=== PATIENT | male | born 1980 | race Two or more races ===

== ENCOUNTER 2018-07-15 23:38 | Emergency (ER) | payer MEDICAID, OTHER ==
[~2018-07-15] VITALS: Ht 170.2 cm; Wt 75.5 kg
[~2018-07-15 23:38] MED LIST: CALA237L TOP; IBUP-1986 PO; LORA-269 PO; NAPR-1154 PO; PERM60CR19 TP
[2018-07-15 23:46] VITALS: BP 181/96
== END 2018-07-16 00:09 | disposition home or self-care (01) ==
LOC: ER 23:38
DX: S90.32XA Contusion of left foot, initial encounter (principal); Z98.890 Other specified postprocedural states; W22.03XA Walked into furniture, initial encounter; Y93.89 Activity, other specified; Y92.099 Unspecified place in other non-institutional residence as the place of occurrence of the external cause; Y99.9 Unspecified external cause status
CPT/HCPCS: 73630; 99284

== ENCOUNTER 2018-09-23 10:28 | Emergency (ER) | payer MEDICAID, OTHER ==
[~2018-09-23] VITALS: Ht 170.2 cm; Wt 77.3 kg
[2018-09-23 10:42] VITALS: BP 143/83
[2018-09-23] MEDS ORDERED: KETO10TA2 PO (11:13)
== END 2018-09-23 12:45 | disposition home or self-care (01) ==
LOC: ER 10:28
DX: S93.602A Unspecified sprain of left foot, initial encounter (principal); Z79.899 Other long term (current) drug therapy; Z98.890 Other specified postprocedural states; W11.XXXA Fall on and from ladder, initial encounter; Y93.89 Activity, other specified; Y92.89 Other specified places as the place of occurrence of the external cause; Y99.8 Other external cause status
CPT/HCPCS: 73630; 99283

== ENCOUNTER 2018-09-26 13:33 | Outpatient (CLI) | payer OTHER ==
[~2018-09-26 13:33] MED LIST changes: +KETO10TA2 PO
== END 2018-09-26 23:59 | disposition home or self-care (01) ==
LOC: RAD 13:33
PROVIDERS: ATTEND Family Medicine
DX: M19.072 Primary osteoarthritis, left ankle and foot (principal); F17.200 Nicotine dependence, unspecified, uncomplicated
CPT/HCPCS: 73718; 73721

== ENCOUNTER 2020-09-24 13:24 | Emergency (ER) | payer MEDICAID ==
[~2020-09-24] VITALS: Ht 167.6 cm; Wt 81.8 kg
[~2020-09-24 13:24] MED LIST changes: +METH4TAB3 PO; +ONDA4TAB6 PO
[2020-09-24 13:29] VITALS: BP 152/88
[2020-09-24] MEDS ORDERED: acetaminophen 325mg tablet PO ONE (14:40)
== END 2020-09-24 14:54 | disposition home or self-care (01) ==
LOC: ER 13:24
DX: S56.812A Strain of other muscles, fascia and tendons at forearm level, left arm, initial encounter (principal); Z72.89 Other problems related to lifestyle; Z79.899 Other long term (current) drug therapy; X50.0XXA Overexertion from strenuous movement or load, initial encounter; Y93.89 Activity, other specified; Y92.89 Other specified places as the place of occurrence of the external cause; Y99.8 Other external cause status
CPT/HCPCS: 29125; 73090; 99283

== ENCOUNTER 2020-10-11 10:55 | Emergency (ER) | payer MEDICAID ==
[~2020-10-11] VITALS: Ht 167.6 cm; Wt 86.4 kg
[2020-10-11 10:59] VITALS: BP 155/96
[2020-10-11] MEDS ORDERED: ondansetron 4mg rapidly disintigrating tab PO ONE (12:00)
[2020-10-11] MEDS ORDERED: sulfamethoxazole/trimethoprim DS (800/160mg) tablet PO ONE (12:00)
[2020-10-11] MEDS ORDERED: acetaminophen 325mg tablet PO ONE (12:00)
[2020-10-11] MEDS ORDERED: ibuprofen 200mg tablet PO ONE (12:00)
[2020-10-11] MEDS ORDERED: SULF1TAB49 PO (12:02)
== END 2020-10-11 12:37 | disposition home or self-care (01) ==
LOC: ER 10:56
DX: L02.01 Cutaneous abscess of face (principal); Z98.890 Other specified postprocedural states; Z72.89 Other problems related to lifestyle; Z79.899 Other long term (current) drug therapy
CPT/HCPCS: 10060; 99284

== ENCOUNTER 2021-03-22 09:14 | Emergency (ER) | payer MEDICAID, OTHER ==
[~2021-03-22] VITALS: Ht 167.6 cm; Wt 86.4 kg
[2021-03-22 09:53] VITALS: BP 154/101
[2021-03-22] MEDS ORDERED: TETanus/Pertussis (Acell)/Diphther VAC/PF (Tdap-Adult) 0.5ml syringe IMVAC ONE (10:05)
== END 2021-03-22 10:52 ==
LOC: ER 09:14
DX: S61.211A Laceration without foreign body of left index finger without damage to nail, initial encounter (principal); F17.200 Nicotine dependence, unspecified, uncomplicated; F12.90 Cannabis use, unspecified, uncomplicated; Z20.3 Contact with and (suspected) exposure to rabies; Z72.89 Other problems related to lifestyle; Z98.890 Other specified postprocedural states; Z79.899 Other long term (current) drug therapy; W26.8XXA Contact with other sharp object(s), not elsewhere classified, initial encounter; Y93.89 Activity, other specified; Y92.89 Other specified places as the place of occurrence of the external cause; Y99.8 Other external cause status
CPT/HCPCS: 12001; 90471; 90715; 99283

== ENCOUNTER 2022-06-10 08:31 | Emergency (ER) | payer MEDICAID, OTHER ==
[~2022-06-10] VITALS: Ht 167.6 cm; Wt 81.8 kg
[2022-06-10] MEDS ORDERED: piperacillin/tazo 3.375gm/50ml 50 ML IV ONE (09:20)
[2022-06-10 10:24] LABS: BASOPHILS # (AUTO) 0.1 X10'3 (0-0.2); BASOPHILS % (AUTO) 0.8 % (0-1); EOSINOPHILS # (AUTO) 0.1 X10'3 (0-0.9); EOSINOPHILS % (AUTO) 0.3 % (0-6); HEMATOCRIT 39.4 % (42.0-52.0); HEMOGLOBIN 13.2 g/dl (14.0-17.9); LYMPHOCYTES # (AUTO) 0.6 X10'3 (1.1-4.8); LYMPHOCYTES % (AUTO) 3.4 % (21-51); MEAN CORPUSCULAR HGB CONC 33.4 g/dL (33.0-36.5); MEAN CORPUSCULAR VOLUME 89.8 FL (78-98); MEAN PLATELET VOLUME 8.4 FL (7.4-10.4); MONOCYTES # (AUTO) 1.6 X10'3 (0-0.9); MONOCYTES % (AUTO) 9.3 % (2-12); NEUTROPHILS # (AUTO) 14.8 X10'3 (1.8-7.7); NEUTROPHILS % (AUTO) 86.2 % (42-75); PLATELET COUNT 251 X10'3 (140-440); RED BLOOD COUNT 4.39 X10'6 (4.70-6.10); RED CELL DISTRIBUTION WIDTH 13.9 % (11.5-14.5); WHITE BLOOD COUNT 17.2 X10'3 (4.5-11.0)
[2022-06-10 10:49] LABS: ALANINE AMINOTRANSFERASE 52 U/L (12-78); ALBUMIN 3.1 G/DL (3.4-5.0); ALBUMIN/GLOBULIN RATIO 0.7 (1.1-1.5); ALKALINE PHOSPHATASE 83 IU/L (46-116); ANION GAP 9 (8-16); ASPARTATE AMINO TRANSFERASE 33 U/L (10-37); BILIRUBIN,TOTAL 0.7 MG/DL (0.1-1.0); BLOOD UREA NITROGEN 12 MG/DL (7-18); BUN/CREATININE RATIO 13.6 (5.4-32.0); CALCIUM 8.5 MG/DL (8.5-10.1); CHLORIDE 102 MMOL/L (99-107); CREATININE 0.88 MG/DL (0.60-1.10); GLUCOSE 120 MG/DL (70-104); POTASSIUM 3.9 MMOL/L (3.5-5.1); SODIUM 137 MMOL/L (135-145); TOTAL CARBON DIOXIDE 25.9 MMOL/L (24-32); TOTAL PROTEIN 7.4 G/DL (6.4-8.2); eGFR > 90 ML/MIN
[2022-06-10 12:10] LABS: CLARITY,URINE CLEAR (Clear); COLOR,URINE DARK YELLOW (Yellow); GLUCOSE, URINE NEGATIVE (Neg); KETONES,URINE TRACE mg/dl (Neg); LEUKOCYTE ESTERASE ,URINE NEGATIVE (Neg); NITRITES, URINE NEGATIVE (Neg); OCCULT BLOOD,URINE NEGATIVE (Neg); PROTEIN,URINE 30 mg/dl (Neg); UA COLLECTION TYPE VOIDED
[2022-06-10 12:18] LABS: BACTERIA,URINE NONE SEEN /HPF (Neg); FINE GRANULAR CAST 0-3 /LPF (NEGATIVE); HYALINE CASTS 0-3 /LPF (NEGATIVE); MUCUS STRANDS FEW /LPF (Neg); RBC,URINE NONE SEEN /HPF (0-2); SQUAMOUS EPITHELIAL CELL,UR NONE SEEN /LPF (FEW); WBC,URINE 0-4 /HPF (0-4)
[2022-06-10 13:10] VITALS: BP 132/82
[2022-06-10] MEDS ORDERED: HYDROcodone/acetaminophen 10/325mg tab PO ONE (13:10)
[2022-06-10] MEDS ORDERED: rifampin 300mg capsule PO SCH (13:22)
[2022-06-10] MEDS ORDERED: CLIN-97 PO ×2 (13:54)
[2022-06-10] MEDS ORDERED: HYDR-3965 PO ×2 (13:54)
[2022-06-10] MEDS ORDERED: RIFA300C9 PO ×2 (13:54)
[2022-06-11] MEDS ORDERED: NO HOME MEDS (18:15)
== END 2022-06-10 14:11 | disposition home or self-care (01) ==
LOC: ER 08:31
DX: L03.314 Cellulitis of groin (principal); F12.10 Cannabis abuse, uncomplicated; F15.10 Other stimulant abuse, uncomplicated
CPT/HCPCS: 36415; 76870; 80053; 81001; 83605; 83735; 84145; 85025; 87040; 93976; 96365; 99285; J2543

== ENCOUNTER 2022-08-23 15:06 | Emergency (ER) | payer MEDICAID ==
[~2022-08-23] VITALS: Ht 167.6 cm; Wt 77.3 kg
[~2022-08-23 15:06] MED LIST changes: -CALA237L TOP; +DIPH59SP5 TOP; +FOLI1TAB27 PO; -IBUP-1986 PO; -KETO10TA2 PO; -LORA-269 PO; -METH4TAB3 PO; +MULT-25 PO; -NAPR-1154 PO; +NICO-631 TD; -ONDA4TAB6 PO; -PERM60CR19 TP; +thiamine tablet PO
[2022-08-23 15:28] VITALS: BP 134/94
[2022-08-23] MEDS ORDERED: LIDOcaine 1% w/EPI 1:100,000 30ml vial (MDV) IJ ONE (15:30)
[2022-08-23] MEDS ORDERED: TETanus/Pertussis (Acell)/Diphther VAC/PF (Tdap-Adult) 0.5ml syringe IMVAC ONE (15:30)
== END 2022-08-23 16:20 | disposition home or self-care (01) ==
LOC: ER 15:06
DX: S01.511A Laceration without foreign body of lip, initial encounter (principal); F12.10 Cannabis abuse, uncomplicated; F15.10 Other stimulant abuse, uncomplicated; Z79.899 Other long term (current) drug therapy; X58.XXXA Exposure to other specified factors, initial encounter; Y93.89 Activity, other specified; Y92.89 Other specified places as the place of occurrence of the external cause; Y99.8 Other external cause status
CPT/HCPCS: 40650; 90471; 90715; 99284; A6449

== ENCOUNTER 2022-09-15 20:52 | Emergency (ER) | payer MEDICAID ==
[~2022-09-15] VITALS: Ht 294.6 cm; Wt 79.0 kg
[2022-09-15 21:47] LABS: BASOPHILS # (AUTO) 0.1 X10'3 (0-0.2); BASOPHILS % (AUTO) 1.2 % (0-1); EOSINOPHILS # (AUTO) 0.1 X10'3 (0-0.9); EOSINOPHILS % (AUTO) 1.6 % (0-6); HEMATOCRIT 44.8 % (42.0-52.0); HEMOGLOBIN 15.3 g/dl (14.0-17.9); LYMPHOCYTES # (AUTO) 3.1 X10'3 (1.1-4.8); LYMPHOCYTES % (AUTO) 42.7 % (21-51); MEAN CORPUSCULAR HEMOGLOBIN 30.5 PG (27.0-31.0); MEAN CORPUSCULAR HGB CONC 34.2 g/dL (33.0-36.5); MEAN CORPUSCULAR VOLUME 89.4 FL (78-98); MEAN PLATELET VOLUME 7.6 FL (7.4-10.4); MONOCYTES # (AUTO) 0.6 X10'3 (0-0.9); MONOCYTES % (AUTO) 8.2 % (2-12); NEUTROPHILS # (AUTO) 3.4 X10'3 (1.8-7.7); NEUTROPHILS % (AUTO) 46.3 % (42-75); PLATELET COUNT 303 X10'3 (140-440); RED BLOOD COUNT 5.02 X10'6 (4.70-6.10); RED CELL DISTRIBUTION WIDTH 13.9 % (11.5-14.5); WHITE BLOOD COUNT 7.3 X10'3 (4.5-11.0)
[2022-09-15 22:00] LABS: ALANINE AMINOTRANSFERASE 26 U/L (12-78); ALBUMIN 3.9 G/DL (3.4-5.0); ALKALINE PHOSPHATASE 74 IU/L (46-116); ANION GAP 11 (8-16); ASPARTATE AMINO TRANSFERASE 27 U/L (10-37); BILIRUBIN,TOTAL 0.3 MG/DL (0.1-1.0); BLOOD UREA NITROGEN 16 MG/DL (7-18); BUN/CREATININE RATIO 18.2 (5.4-32.0); CALCIUM 9.4 MG/DL (8.5-10.1); CHLORIDE 103 MMOL/L (99-107); CREATININE 0.88 MG/DL (0.60-1.10); ETHANOL < 0.010 GM/DL (0.0-0.010); GLUCOSE 100 MG/DL (70-104); POTASSIUM 4.2 MMOL/L (3.5-5.1); SODIUM 139 MMOL/L (135-145); TOTAL CARBON DIOXIDE 25.4 MMOL/L (24-32); TOTAL PROTEIN 7.8 G/DL (6.4-8.2); eGFR > 90 ML/MIN
--- NOTE | 2022-09-15 22:47 | NUR ---
Patient brought in by [facility]. Reported [id number], we are looking for that paperwork. The patient is well oriented. He complains of racing thoughts. Patient has thoughts of hanging himself. He denies S/I, H/I, or any hallucinations. He is cooperative. Patient states he uses THC, meth, tobacco, and alcohol. Patient denies any previous suicide attempts. Hx: Depression and Bipolar. Patient takes no medication.
--- NOTE | 2022-09-15 23:30 | NUR ---
Patient is sleeping in a prone position. In view from the nurses station.
--- NOTE | 2022-09-16 01:40 | NUR ---
Patient continues to sleep. In view from nurses station.
--- NOTE | 2022-09-16 02:40 | NUR ---
Patient self repositions in bed. He continues to sleep.
--- NOTE | 2022-09-16 03:50 | NUR ---
Patient is sleeping quietly.
--- NOTE | 2022-09-16 05:00 | NUR ---
The patient is up to bathroom. The patient was instruct how to do a clean catch urine. The patient voided into the toilet and the urine sample was lost.
--- NOTE | 2022-09-16 07:03 | NUR ---
Pt resting comfortably no restless movements. Respirations even and unlabored.
--- NOTE | 2022-09-16 09:00 | NUR ---
One on one with patient to assess suicidal thoughts. Pt was awoken for assessment. Pt calm/cooperative. Pt currently denies suicidal thoughts, it was just in the moment. "I was overwhelmed." Pt denies A/VH. Pt states he has a history of bipolar, but hasn't been on medication "for awhile." Pt states he is no prior PUF placements. Pt states he has been on Zoloft and Latuda in the past.
--- NOTE | 2022-09-16 11:00 | NUR ---
Pt resting comfortably, respirations even and unlabored.
[2022-09-16 11:01] LABS: CLARITY,URINE CLEAR (Clear); COLOR,URINE YELLOW (Yellow); GLUCOSE, URINE NEGATIVE (Neg); KETONES,URINE NEGATIVE (Neg); LEUKOCYTE ESTERASE ,URINE NEGATIVE (Neg); NITRITES, URINE NEGATIVE (Neg); OCCULT BLOOD,URINE NEGATIVE (Neg); PROTEIN,URINE NEGATIVE (Neg); UA COLLECTION TYPE CLN CATCH MIDSTREAM; UROBILINOGEN,URINE 0.2 E.U/dL (0.2-1.0)
[2022-09-16 11:07] LABS: URINE AMPHETAMINE SCREEN POSITIVE (Neg); URINE BARBITUATE SCREEN NEGATIVE (Neg); URINE BENZODIAZEPINES SCREEN NEGATIVE (Neg); URINE CANNABINOID SCREEN POSITIVE (Neg); URINE COCAINE SCREEN NEGATIVE (Neg); URINE METHADONE SCREEN NEGATIVE (Neg); URINE OPIATE SCREEN NEGATIVE (Neg); URINE PHENCYCLIDINE SCREEN NEGATIVE (Neg)
--- NOTE | 2022-09-16 11:39 | NUR ---
[facility] at bedside. Pt answering questions appropriately. Calm/cooperative.
--- NOTE | 2022-09-16 14:40 | NUR ---
DISCHARGE NOTE Patient was discharged from unit at 1355. Pt was A&Ox4. Pt was picked by his boss/friend. Pt denies SI/HI/A/VH. Pt left with all personal belongings. Pt has a follow up appointment with PCP on 09/28/22. Pt states he will follow with AA/NA meetings.
[2022-09-16 14:43] VITALS: BP 120/85
== END 2022-09-16 13:55 | disposition home or self-care (01) ==
LOC: ER 20:53
DX: R45.851 Suicidal ideations (principal); Z20.822 Contact with and (suspected) exposure to COVID-19; F43.9 Reaction to severe stress, unspecified; F12.90 Cannabis use, unspecified, uncomplicated; F15.90 Other stimulant use, unspecified, uncomplicated; F19.90 Other psychoactive substance use, unspecified, uncomplicated; Z98.890 Other specified postprocedural states; Z72.89 Other problems related to lifestyle; Z79.899 Other long term (current) drug therapy
CPT/HCPCS: 36415; 80053; 80305; 80320; 81003; 85025; 87811; 99285